=== PATIENT | male | born 1950 | race African-American/Black ===

== ENCOUNTER 2022-04-22 14:31 | Inpatient (IN) ==
[2022-04-22 15:53] LABS: Basophils % 0.3 % (0.0-0.8); Eosinophils # 0.1 10*3/uL (0.0-0.87); Eosinophils % 0.7 % (0.00-10.9); Hematocrit 33.3 VOL% (42.0-52.0); Hemoglobin 11.4 GM/DL (14.0-18.0); Immature Granulocytes % 0.8 %; Immature Granulocytes Absolute 0.08 #; Lymphocytes # 3.3 10*3/uL (1.4-4.0); Lymphocytes % 31.4 % (21.2-54.2); Mean Corpuscular HGB Conc 34.2 GM/DL (32-36); Mean Corpuscular Volume 88.6 FL (87-102); Mean Platelet Volume 10.9 FL (9.6-12.0); Monocytes # 0.6 10*3/uL (0.11-0.8); NRBC # 0.02 10*3/uL; Neutrophils % 60.8 % (38.7-73.9); Platelet Count 235 T/CUMM (130-400); Red Blood Count 3.76 MC/CUMM (3.8-5.5); Red Cell Distribution Width 15.8 % (9.3-17.3); White Blood Count 10.5 T/CUMM (4-12)
[2022-04-22 16:14] LABS: Albumin 3.4 G/DL (3.4-5.0); Bilirubin,Total 0.4 MG/DL (0.20-1.00); Calcium 8.2 MG/DL (8.5-10.1); Osmolality,Calculated 281.7 MOS/KG (273-304); Potassium 5.2 MMOL/L (3.5-5.1); Total Protein 7.5 G/DL (6.4-8.2)
[2022-04-22] MEDS ORDERED: ONDANSETRON 4 MG/2 ML VIAL IV PRN (18:32)
[2022-04-22] MEDS ORDERED: ZALEPLON 5 MG CAPSULE PO PRN (18:32)
[2022-04-22] MEDS ORDERED: ACETAMINOPHEN 325 MG TABLET PO PRN (18:32)
[2022-04-22] MEDS: SODIUM CHLORIDE 0.9% 1,000 ML IV SCH (21:32)
[2022-04-22] MEDS: PANTOPRAZOLE 40 MG VIAL IV SCH (21:32)
[2022-04-22 22:33] LABS: RBC,Urine 1 /HPF (0-4); Squamous Epithelial Cell,Urine Occasional /HPF (0-10)
[2022-04-22 22:35] LABS: Protein,Urine 100 mg/dL (Negative); Urine Appearance Clear (Clear); Urine Color Yellow (Yellow); Urine Specific Gravity 1.025 (1.001-1.035)
[2022-04-22 22:36] LABS: Bilirubin,Urine Negative (Negative); Blood, Urine Large mg/dL (Negative); Glucose,Urine (UA) Negative (Negative); Ketones,Urine Negative (Negative); Nitrite,Urine Negative (Negative)
[2022-04-23 03:00] LABS: Basophils % 0.4 % (0.0-0.8); Eosinophils # 0.1 10*3/uL (0.0-0.87); Eosinophils % 1.3 % (0.00-10.9); Hematocrit 23.9 VOL% (42.0-52.0); Immature Granulocytes % 0.8 %; Immature Granulocytes Absolute 0.07 #; Lymphocytes # 3.4 10*3/uL (1.4-4.0); Lymphocytes % 37.9 % (21.2-54.2); Mean Corpuscular HGB Conc 33.5 GM/DL (32-36); Mean Corpuscular Volume 88.8 FL (87-102); Mean Platelet Volume 10.2 FL (9.6-12.0); Monocytes # 0.8 10*3/uL (0.11-0.8); Monocytes % 8.5 % (1.7-12.7); Neutrophils % 51.1 % (38.7-73.9); Platelet Count 165 T/CUMM (130-400); Red Blood Count 2.69 MC/CUMM (3.8-5.5); Red Cell Distribution Width 15.1 % (9.3-17.3); White Blood Count 9.1 T/CUMM (4-12)
[2022-04-23 03:15] LABS: Calcium 8.1 MG/DL (8.5-10.1); Osmolality,Calculated 286.1 MOS/KG (273-304); Potassium 3.9 MMOL/L (3.5-5.1)
[2022-04-23 03:40] LABS: Anisocytosis 1+; Atypical Lymphocytes Few; Band Neutrophils 1 % (0-10); Eosinophils 1 % (0-10); Lymphocytes 41 % (20-55); Macrocytosis Slight; Platelet Estimate Normal; Target Cells 1+; Total Cells Counted 100
[2022-04-23] MEDS: PANTOPRAZOLE 40 MG VIAL IV SCH ×2 (09:52→21:30)
[2022-04-23] MEDS: SODIUM CHLORIDE 0.9% 1,000 ML IV SCH ×2 (09:52→20:15)
[2022-04-23] MEDS: BISACODYL 5 MG TABLET PO SCH ×2 (17:20→23:55)
[2022-04-23] MEDS ORDERED: POLYETHYLENE GLYCOL POWDER 255 GM BOTTLE PO ONE (18:00)
[2022-04-23] MEDS ORDERED: MAGNESIUM HYDROXIDE SUSP 30 ML UDCUP PO ONE (21:00)
[2022-04-24 05:25] LABS: Basophils % 0.4 % (0.0-0.8); Eosinophils # 0.1 10*3/uL (0.0-0.87); Eosinophils % 1.6 % (0.00-10.9); Hematocrit 22.6 VOL% (42.0-52.0); Hemoglobin 7.7 GM/DL (14.0-18.0); Immature Granulocytes % 1.1 %; Immature Granulocytes Absolute 0.09 #; Lymphocytes # 2.9 10*3/uL (1.4-4.0); Lymphocytes % 36.5 % (21.2-54.2); Mean Corpuscular HGB Conc 34.1 GM/DL (32-36); Mean Corpuscular Volume 88.3 FL (87-102); Mean Platelet Volume 10.6 FL (9.6-12.0); Monocytes # 0.8 10*3/uL (0.11-0.8); Monocytes % 10.2 % (1.7-12.7); NRBC # 0.03 10*3/uL; Neutrophils % 50.2 % (38.7-73.9); Platelet Count 172 T/CUMM (130-400); Red Blood Count 2.56 MC/CUMM (3.8-5.5); Red Cell Distribution Width 15.1 % (9.3-17.3)
[2022-04-24 05:53] LABS: Calcium 8.5 MG/DL (8.5-10.1); Potassium 3.9 MMOL/L (3.5-5.1)
[2022-04-24] MEDS: BISACODYL 5 MG TABLET PO SCH (05:54)
[2022-04-24] MEDS: LACTATED RINGERS 1,000 ML IV SCH (07:33)
[2022-04-24] MEDS ORDERED: SODIUM CHLORIDE 0.9% 1,000 ML IV PRN ×2 (08:17→11:23)
[2022-04-24] MEDS ORDERED: LIDOCAINE 2% 5 ML VIAL ONE (08:19)
[2022-04-24] MEDS ORDERED: propofoL 200 MG/20 ML VIAL IV ONE (08:19)
[2022-04-24] MEDS ORDERED: ETOMIDATE 20 MG/10 ML VIAL IV ONE (08:22)
[2022-04-24] MEDS ORDERED: PHENYLEPHRINE 1 MG/10 ML SYRINGE IV ONE (08:28)
[2022-04-24] MEDS: SODIUM CHLORIDE 0.9% 1,000 ML IV SCH (10:36)
[2022-04-24] MEDS: PANTOPRAZOLE 40 MG VIAL IV SCH ×2 (10:36→20:27)
[2022-04-24] MEDS ORDERED: methylPREDNISolone SOD SUC 125 MG/2 ML VIAL IV ONE (14:34)
[2022-04-24] MEDS ORDERED: diphenhydrAMINE 50 MG/1 ML VIAL IV ONE (14:34)
[2022-04-24] MEDS ORDERED: diphenhydrAMINE CAP 25 MG CAPSULE PO PRN (16:11)
[2022-04-24 17:12] LABS: Bilirubin,Urine Negative (Negative); Blood, Urine Negative (Negative); Glucose,Urine (UA) Negative (Negative); Ketones,Urine Trace mg/dL (Negative); Mucus,Urine Occasional /LPF (Occasional); Nitrite,Urine Negative (Negative); Protein,Urine Trace mg/dL (Negative); RBC,Urine 2 /HPF (0-4); Urine Appearance Clear (Clear); Urine Color Yellow (Yellow); Urine Urobilinogen 0.2 eU/dL (<2.0)
[2022-04-25 05:27] LABS: Hematocrit 27.5 VOL% (42.0-52.0); Hemoglobin 9.3 GM/DL (14.0-18.0); Immature Granulocytes % 0.8 %; Immature Granulocytes Absolute 0.07 #; Lymphocytes # 1.2 10*3/uL (1.4-4.0); Lymphocytes % 14.8 % (21.2-54.2); Mean Corpuscular HGB Conc 33.8 GM/DL (32-36); Mean Corpuscular Volume 90.5 FL (87-102); Mean Platelet Volume 10.5 FL (9.6-12.0); Monocytes # 0.3 10*3/uL (0.11-0.8); Monocytes % 3.7 % (1.7-12.7); NRBC # 0.03 10*3/uL; Neutrophils % 80.7 % (38.7-73.9); Platelet Count 183 T/CUMM (130-400); Red Blood Count 3.04 MC/CUMM (3.8-5.5); Red Cell Distribution Width 15.1 % (9.3-17.3); White Blood Count 8.4 T/CUMM (4-12)
[2022-04-25 06:02] LABS: Calcium 8.3 MG/DL (8.5-10.1); Osmolality,Calculated 290.7 MOS/KG (273-304); Potassium 4.5 MMOL/L (3.5-5.1)
[2022-04-25] MEDS ORDERED: ATORVASTATIN 10 MG TABLET PO SCH (09:00)
[2022-04-25] MEDS ORDERED: MONTELUKAST 10 MG TABLET PO SCH (09:00)
[2022-04-25] MEDS ORDERED: allopurinoL 300 MG TABLET PO SCH (09:00)
[2022-04-25] MEDS: PANTOPRAZOLE 40 MG VIAL IV SCH (10:43)
[2022-04-25] MEDS: LACTATED RINGERS 1,000 ML IV SCH (10:44)
[2022-04-25 11:32] VITALS: BP 102/65
[2022-04-26] MEDS ORDERED: predniSONE 20 MG TABLET PO SCH (09:00)
== END 2022-04-25 12:32 | disposition home or self-care (01) | DRG 378 ==
LOC: N.ED 14:31 → N.EDINP 18:28 → SUATTDRO 18:28 → N.3E 19:06
PROVIDERS: ADMIT Hospitalist; ATTEND Hospitalist